=== PATIENT | male | born 1980 | race Caucasian/White ===

== ENCOUNTER 2019-06-17 06:30 | Inpatient (IN) | payer OTHER ==
[~2019-06-17] VITALS: Ht 180.3 cm; Wt 95.3 kg
[~2019-06-17 06:30] MED LIST: CEPHALEXIN 500500 M2 PO; CIPROFLOXACIN500 M1 PO; DILAUDID 2 MG TA2 MG PO; FLOMAX0.4 MG PO; HYDROCODONE-AP1 EAC6 PO; LEVAQUIN 500 M500 M2 PO
[2019-06-17 10:20] VITALS: BP 136/76
[2019-06-17 13:33] LABS: CREATININE 0.9 mg/dL (0.7-1.3)
[2019-06-17 16:13] VITALS: BP 129/76
[2019-06-17 19:20] VITALS: BP 136/92
--- NOTE | 2019-06-17 19:41 | NUR ---
PATIENT ADMITTED TO ROOM THIS AM. HE AMBULATED TO UNIT. ALERT ORIENTED X4. PATIENT WAS NPO THIS AM. ALL OF A SUDDEN HE DECIDED HE HAS TO EAT NO MATTER WHAT. STATED TO NURSE THAT HE IS THE PATIENT AND HE IS ALWAYS RIGHT. HE WAS ABOUT TO LEAVE TO UNIT BY HIMSELF TO THE [place] AND NURSE OFFERED TO SEND SOMEONE WITH HIM. NOT EASILY REDIRECTED. HE DOES HE WANTS.
[2019-06-18] MEDS ORDERED: TRAMADOL 50 MG50 MG PO (12:52)
[2019-06-18] MEDS ORDERED: DICLOFENAC SODI75 MG PO (12:53)
== END 2019-06-17 19:47 | disposition left against medical advice (07) | DRG 539 ==
LOC: 3W 06:30
PROVIDERS: ADMIT Hospitalist
DX: M46.22 Osteomyelitis of vertebra, cervical region (principal); G03.9 Meningitis, unspecified; F17.210 Nicotine dependence, cigarettes, uncomplicated; R13.10 Dysphagia, unspecified; Z87.442 Personal history of urinary calculi; Z79.899 Other long term (current) drug therapy
CPT/HCPCS: 10879

== ENCOUNTER 2019-06-18 12:42 | Inpatient (IN) | payer OTHER ==
[~2019-06-18] VITALS: Ht 180.3 cm; Wt 95.5 kg
[2019-06-18 12:43] VITALS: BP 143/86
[2019-06-18] MEDS ORDERED: TRAMADOL 50 MG50 MG PO (12:52)
[2019-06-18] MEDS ORDERED: DICLOFENAC SODI75 MG PO (12:53)
[2019-06-18 13:09] LABS: ABSOLUTE NEUTROPHILS 13.4 thou/uL (1.4-8.2); BASOPHILS 0.8 % (0.0-2.0); EOSINOPHILS 0.8 % (0.0-3.0); HEMATOCRIT 44.6 % (42.0-52.0); HEMOGLOBIN 15.7 gm/dL (14.0-18.0); LYMPHOCYTES 15.1 % (24.0-44.0); MCH 30.3 pg (26.0-34.0); MCHC 35.2 g/dL (28.0-37.0); MCV 86.1 fL (80.0-100.0); MONOCYTES 8.1 % (1.0-8.0); PLATELET COUNT 339 thou/uL (150-400); POLYS 75.2 % (36.0-66.0); RBC 5.18 mil/uL (4.50-6.00); RDW 13.1 % (10.5-14.5); WBC 17.8 thou/uL (4.0-11.0)
[2019-06-18 13:13] LABS: CALCIUM 10.1 mg/dL (8.5-10.1); CREATININE 0.9 mg/dL (0.7-1.3); POTASSIUM 3.8 mmol/L (3.5-5.1)
[2019-06-18 13:19] LABS: ALBUMIN 4.4 g/dL (3.4-5.0); TOTAL BILIRUBIN 0.4 mg/dL (<0.1-1.0); TOTAL PROTEIN 8.4 g/dL (6.4-8.2)
[2019-06-18 14:34] VITALS: BP 146/91
[2019-06-18 15:00] VITALS: BP 141/95
[2019-06-18 15:10] VITALS: BP 141/95
[2019-06-18 15:27] VITALS: BP 139/91
--- NOTE | 2019-06-18 19:37 | NUR ---
Assumed care of pt at 0700. Pt a&ox4. Up to unit from ED approx 1530. Pt feeling anxious. Admission completed. Up ad ba. Requests to take shower. Denies pain. Call light within reach. Will continue to monitor.
[2019-06-18 20:17] VITALS: BP 127/74
--- NOTE | 2019-06-19 02:24 | NUR ---
ASSUMED CARE AROUND 1900. AXOX4. VSS. REMAINS AFEBRILE. DENIES SOB OR DIFFICULTY BREATHING AT THIS TIME. SIGNIFICANT OTHER AT BEDSIDE. DENIES ANY PAIN ON CHEST/NECK. C/O BLE PAIN FOR RESTLESS LEG SYNDROME PER PT. TX PER MD ORDER. IV ATB CLINDAMYCIN STARTED THIS PM. NO S/S ACUTE DISTRESS NOTED OR REPORTED AT THIS TIME. WILL CONT TO MONITOR FOR ANY CHANGES IN CONDITION.
[2019-06-19 05:18] VITALS: BP 113/77
[2019-06-19 05:46] LABS: CALCIUM 8.8 mg/dL (8.5-10.1); CREATININE 0.8 mg/dL (0.7-1.3); POTASSIUM 4.2 mmol/L (3.5-5.1)
[2019-06-19 05:54] LABS: HEMATOCRIT 41.8 % (42.0-52.0); HEMOGLOBIN 14.2 gm/dL (14.0-18.0); MCH 29.7 pg (26.0-34.0); MCV 87.5 fL (80.0-100.0); RBC 4.78 mil/uL (4.50-6.00); RDW 13.2 % (10.5-14.5); WBC 16.5 thou/uL (4.0-11.0)
[2019-06-19 08:56] VITALS: BP 113/68
--- NOTE | 2019-06-19 08:57 | HC ---
[facility] [place] [address] [address] CONSULTATION Name: JANEY BRAND Edmund Room #: 458-P [facility] IN ..#: [id number] Admission: 06/18/19 Attend Phys: Amber Erwin MD Discharge: Date of : 82 Report #: [id number] THIS REPORT FOR: //name// CC: FAM unknown Amber Erwin DATE OF SERVICE: 06/18/2019 REASON FOR CONSULTATION: Sore throat/neck. HISTORY OF PRESENT ILLNESS: The patient is a 39-year-old gentleman who started to notice generalized neck pain on Saturday. At that point, he denied any other symptoms aside from some mild fevers. He denied any odynophagia, rhinorrhea, postnasal discharge. He denies any recent dental work. He denies any known trauma to the oral cavity, oropharynx. He denies any use of drugs at that time. The pain was not relieved with tramadol, which he had for nephrolithiasis. 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 An x-ray was obtained there with a questionable finding of a possible retropharyngeal phlegmon and/or abscess. The patient was at that point transferred to [facility], started on IV antibiotics, but he left AMA. The patient returned today as he states the pain is returning. The patient states he does feel better today than yesterday. He denies presently any odynophagia unless actively swallowing. He denies any significant neck pain, although on requesting, he does state the neck pain is still there, especially when he rotates his neck from side to side. He denies any airway difficulties. He states his voice is fairly normal with perhaps a slightly raspy sound to it. He denies any sinus, ear or other throat symptomatology. He has no long history of tonsillitis or strep throat. His hospital records did demonstrate he did receive some IV antibiotic therapy yesterday prior to AMA. I reviewed the CT scan, which was performed yesterday, which does demonstrate an edema of the retropharyngeal space; however, the edema is in a "bow tie" shaped fashion. There is no rim enhancement. There is no associated lymphadenopathy. There is no airway compromise. MEDICATIONS: List was reviewed on the hospital chart as well as his past medical history. REVIEW OF SYSTEMS: Otherwise, unremarkable for GI, , CARDIOVASCULAR, PULMONARY. PHYSICAL EXAMINATION: He was examined in ER room 7. He appears alert and oriented. He appears to be in no distress. Examination of his face reveals no [facility] [address] [place] [address] CONSULTATION Name: JANEY BRAND Edmund Room #: 458-P [facility] IN .R.#: [id number] Admission: 06/18/19 Attend Phys: Amber Erwin MD Discharge: Date of : 82 Report #: [id number] cellulitis, his neck palpates without any lymphadenopathy in the anterior or posterior triangles. Intranasal examination shows a severe right-sided septal deviation, nasal mucosa otherwise appears unremarkable. His oral cavity shows good dentition without poor repair. His oral mucosa is without any lesions. Floor of mouth is normal. Tongue appears normal. Oropharynx shows no evidence of any pharyngeal bulging on the posterior wall. Tonsils are 2+ in nature without any erythema. Due to concerns of the retropharyngeal findings, a flexible nasopharyngoscopy was performed through anesthetizing the left naris. Findings in the nares were unremarkable. The nasopharyngeal mucosa appears unremarkable. The oropharyngeal mucosa appears normal. There is no evidence of any bulging on the posterior or lateral pharyngeal ridley. The hypopharynx appears unremarkable without any bulging in the postcricoid region. True vocal cords are normal. The airway is intact without any limitations. The lingual and laryngeal surface of the epiglottis unremarkable. The base of the tongue appears normal. ASSESSMENT: Retropharyngeal phlegmon/infection without abscessing. RECOMMENDATIONS: Given the findings of phlegmon without abscess, he does not need surgical drainage at this point in time; however, he does require intravenous antibiotic therapy along with IV steroids to reduce the infection. I would recommend ID consultation for appropriate selection of IV antibiotic therapy. Once the patient is afebrile with normal white count and is no longer symptomatic, he should be able to be switched over to oral antibiotics and discharged. I discussed with the patient the gravity of the situation and he seems to voice good understanding. Thank you for this consultation. <ELECTRONICALLY SIGNED> By: Arcadio Marina MD 06/19/19 0857 [id number] Arcadio Marina MD /nt
[2019-06-19] MEDS ORDERED: CLEOCIN HCL150 MG PO ×2 (09:25→15:25)
[2019-06-19] MEDS ORDERED: PREDNISONE 10 M10 MG PO (09:30)
--- NOTE | 2019-06-19 13:11 | HC ---
[facility] [place] [place] [address] CONSULTATION Name: KIMBERLI BRANDSSBernadine Shaffer Room #: 458-P [facility] IN ..#: [id number] Admission: 06/18/19 Attend Phys: Amber Erwin MD Discharge: Date of : 82 Report #: [id number] THIS REPORT FOR: //name// CC: FAM unknown Amber Erwin DATE OF SERVICE: 06/18/2019 INFECTIOUS DISEASE CONSULTATION REASON FOR CONSULTATION: I was asked to evaluate concerning retropharyngeal abscess. 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 Reports several-day history of increased pain in his left neck. He had difficulty swallowing with the discomfort. No documented fever, chills or sweats. He was initially seen in the Emergency Room and transferred to [facility] where he was admitted, placed on Decadron and clindamycin. He was given fentanyl IV. He suffered a psychotic episode and left AMA. He returned this morning for further treatment. ENT evaluation identified no mass or lesion, did not feel he needed a drainage procedure. CT scan showed several centimeters fluid collection in the retropharyngeal space on the left. There was no extension to the spine. In addition, patient has nephrolithiasis. He has been followed by Urology. He has had no dysuria, hematuria, or flank pain. The patient denies any HIV risk factors. He does smoke cigarettes and marijuana. He does work in construction. He has had no recent dental issues. He has had no trauma to his neck. He denies any fever, chills, sweats, weight loss. He states otherwise he has felt well prior to this presentation. ALLERGIES: FENTANYL. MEDICATIONS: As noted on his MAR including clindamycin. PAST MEDICAL HISTORY: Nephrolithiasis, hand surgery following injury, cystoscopy with right stent placement. FAMILY HISTORY: Noncontributory. SOCIAL HISTORY: He is in a monogamous cigarette smoker, past alcohol use, does smoke marijuana. He has had no travel. REVIEW OF SYSTEMS: Denies any rash, adenopathy bleeding disorder, psychiatric issues other than was noted above, skin issues, arthritis, cardiopulmonary disease, GI or issues, sinus disease, musculoskeletal issues. He does have genitourinary issues as noted above. [address] [address] CONSULTATION Name: JANEY BRAND Edmund Room #: 458-P [facility] IN .R.#: [id number] Admission: 06/18/19 Attend Phys: Amber Erwin MD Discharge: Date of : 82 Report #: [id number] PHYSICAL EXAMINATION: VITAL SIGNS: Afebrile and hemodynamically stable. GENERAL: He is alert and cooperative and pleasant, in no acute distress. SKIN: Without rash or lesion. No palpable adenopathy other than a few nodes palpable in the anterior cervical chain. HEENT: Eyes, without scleral icterus. Mouth without mucositis. He had mild swelling in the left retropharyngeal area without exudate or ulceration. NECK: Supple. No thyromegaly or mass. LUNGS: Clear. HEART: Regular, without murmur, gallop or rub. ABDOMEN: Soft, nontender, no hepatosplenomegaly or mass appreciated. No CVA tenderness. No spinal tenderness. GENITORECTAL: Not performed. EXTREMITIES: Unremarkable with no clubbing, cyanosis or edema. NEUROLOGIC: Cranial nerves intact. Strength in his upper and lower extremities was normal. Mood mild anxiety, otherwise normal. LABORATORY STUDIES: Creatinine 0.9. Liver function test normal. Hemoglobin 15, white count 17, platelet 339,000. CT scan of the soft tissues of the neck showed evidence of a 1.8 x 0.7 prevertebral fluid collection in the retropharyngeal space. This extended from C2-C5 5.6 cm in length. There was no significant peripheral enhancement to confirm abscess. Polyp in the inferior left maxillary sinus. IMPRESSION: A 39-year-old with retropharyngeal fluid collection, most consistent with abscess. It did not look like it was a hematoma. He has responded nicely to clindamycin and Decadron. Plan will be to continue IV antibiotic therapy. We will reassess tomorrow his progress. May well need outpatient IV infusion. The patient is without insurance and may need to make adjustments for this. <ELECTRONICALLY SIGNED> By: Vj Us MD 06/19/19 [id number] Vj Us MD /nt
[2019-06-19 16:36] VITALS: BP 113/68
--- NOTE | 2019-06-19 17:36 | NUR ---
PATIENT STATED FEELING MUCH BETTER TODAY. DENIES IRRITATION TO THROAT AND PAIN. HAD SOME LOW BACK PAIN THIS AM WHICH WAS RELIEVED WITH TRAMADOL. UP AMBULATING IN HALLS. TOLERATING DIET WELL. AFEBRILE. DR. MCALLISTER VISITED. PATIENT DISMISSED TO HOME IN STABLE CONDITION.
== END 2019-06-19 16:30 | disposition home or self-care (01) | DRG 153 ==
LOC: ER 12:42 → EROBS 14:39 → 4W 14:39
PROVIDERS: Emergency Medicine; ADMIT Internal Medicine
DX: J39.0 Retropharyngeal and parapharyngeal abscess (principal); F17.210 Nicotine dependence, cigarettes, uncomplicated; T40.4X5A Adverse effect of other synthetic narcotics, initial encounter; F12.20 Cannabis dependence, uncomplicated; D72.829 Elevated white blood cell count, unspecified; T38.0X5A Adverse effect of glucocorticoids and synthetic analogues, initial encounter; Z87.442 Personal history of urinary calculi; Z88.8 Allergy status to other drugs, medicaments and biological substances; Y92.89 Other specified places as the place of occurrence of the external cause; Z79.899 Other long term (current) drug therapy
CPT/HCPCS: 10040